=== PATIENT | female | born 1965 | race Caucasian/White ===

== ENCOUNTER 2020-06-26 19:11 | Emergency (ER) | payer BC, OTHER, SELFPAY ==
[2020-06-26] MEDS ORDERED: CYCLOBENZAPRINE HCL 10 MG TABLET ONE (19:25)
[2020-06-26] MEDS ORDERED: KETOROLAC TROMETHAMINE 30MG/ML ONE (19:25)
[2020-06-26 19:57] LABS: APPEARANCE,URINE Cloudy (CLEAR); BILIRUBIN,URINE Negative (NEGATIVE); COLOR,URINE Yellow (YELLOW); GLUCOSE, URINE (UA) Negative (NEGATIVE); KETONES,URINE Negative (NEGATIVE); LEUKOCYTE ESTERASE ,URINE Small (NEGATIVE); NITRATE,URINE Negative (NEGATIVE); OCCULT BLOOD,URINE Moderate (NEGATIVE); PROTEIN,URINE POS 2+ mg/dL (NEGATIVE); UROBILINOGEN,URINE 0.2 mg/dL (0.2-1.0)
[2020-06-26 19:57] LABS: BASOPHILS % (AUTO) 0.7 % (0.0-5.0); EOSINOPHILS % (AUTO) 1.8 % (0.0-8.0); HEMATOCRIT 41.5 % (36-48); MEAN CORPUSCULAR HEMOGLOBIN 30.8 pg (27.0-33.0); MEAN CORPUSCULAR VOLUME 90.6 fL (79-99); MONOCYTES % (AUTO) 6.7 % (3.0-13.0); NEUTROPHILS % (AUTO) 73.5 % (40.0-77.0); PLATELET COUNT (AUTO) 315 K/uL (130-400); RED BLOOD CELL COUNT(AUTO) 4.58 MIL/uL (4.00-5.50); RED CELL DISTRIBUTION WIDTH 13.3 % (11.0-15.5); WHITE BLOOD COUNT (AUTO) 12.5 K/uL (4.8-10.8)
[2020-06-26 20:18] LABS: SQUAMOUS EPITHELIAL CELL,UR Few /HPF (0-2)
[2020-06-26 20:19] LABS: BACTERIA,URINE Moderate /HPF (None Seen); MUCUS,URINE Few LPF (None Seen)
[2020-06-26 20:40] LABS: ALBUMIN 3.8 g/dL (3.5-5.0); BILIRUBIN,TOTAL 0.3 mg/dL (0.2-1.0); TOTAL PROTEIN, SERUM 7.4 g/dL (6.0-8.3)
== END 2020-06-26 20:58 | disposition home or self-care (01) ==
LOC: EDH 19:11
DX: S29.012A Strain of muscle and tendon of back wall of thorax, initial encounter (principal); S39.012A Strain of muscle, fascia and tendon of lower back, initial encounter; R73.09 Other abnormal glucose; R03.0 Elevated blood-pressure reading, without diagnosis of hypertension; E11.9 Type 2 diabetes mellitus without complications; V49.88XA Car occupant (driver) (passenger) injured in other specified transport accidents, initial encounter; Y93.89 Activity, other specified; Y92.488 Other paved roadways as the place of occurrence of the external cause; Y99.8 Other external cause status
CPT/HCPCS: 36415; 72128; 72131; 80053; 81001; 82550; 85025; 87088; 96374; 99285; J1885

== ENCOUNTER 2023-02-01 08:33 | Day surgery (SDC) | payer BC ==
[~2023-02-01] VITALS: Ht 157.5 cm; Wt 122.3 kg
[2023-02-01] VITALS (15 sets, daily range): BP systolic 111–171; BP diastolic 65–90; PULSE 84–93; RESP 15–20
[2023-02-01 09:06] LABS: BASOPHILS % (AUTO) 1.1 % (0.0-5.0); EOSINOPHILS % (AUTO) 4.5 % (0.0-8.0); HEMATOCRIT 41.2 % (36-48); IMMATURE GRANULOCYTE ABSOLUTE 0.04 K/uL (0-1); LYMPHOCYTES # (AUTO) 2.1 K/uL (1.0-4.8); LYMPHOCYTES % (AUTO) 23.4 % (21.0-51.0); MEAN CORPUSCULAR HEMOGLOBIN 30.4 pg (27.0-33.0); MEAN CORPUSCULAR VOLUME 92.2 fL (79-99); MONOCYTES # (AUTO) 0.6 K/uL (0.1-1.0); MONOCYTES % (AUTO) 6.4 % (3.0-13.0); NEUTROPHILS # (AUTO) 5.8 K/uL (1.8-7.7); NEUTROPHILS % (AUTO) 64.2 % (40.0-77.0); PLATELET COUNT (AUTO) 334 K/uL (130-400); RED BLOOD CELL COUNT(AUTO) 4.47 MIL/uL (4.00-5.50); RED CELL DISTRIBUTION WIDTH 13.4 % (11.0-15.5)
[2023-02-01] MEDS ORDERED: LACTATED RINGERS 1000ML 1,000 ML IV ONE (09:13)
[2023-02-01 09:16] LABS: CREATININE 1.1 mg/dL (0.5-1.5); POTASSIUM 5.5 mmol/L (3.5-5.1)
[2023-02-01] MEDS ORDERED: MIDAZOLAM HCL 1 MG/ML 2ML VIAL ONE (12:11)
[2023-02-01] MEDS ORDERED: FENTANYL CITRATE PF 50 MCG/1 ML 2ML VIAL ONE (12:11)
[2023-02-01] MEDS ORDERED: LIDOCAINE PF 100MG/5ML (2%) SYRINGE 5ML ONE (12:11)
[2023-02-01] MEDS ORDERED: PROPOFOL 10 MG/ML 20ML VIAL IV ONE (12:11)
[2023-02-01] MEDS ORDERED: ONDANSETRON 4MG INJ ONE ×2 (13:02→13:55)
[2023-02-01] MEDS ORDERED: DEXAMETHASONE SOD PHOSPHATE 4 MG/ML 1ML VIAL ONE (13:02)
[2023-02-01] MEDS ORDERED: INSU100I35 SQ (13:04)
[2023-02-01] MEDS ORDERED: VENL225T3 PO (13:04)
[2023-02-01] MEDS ORDERED: BRIM5DRO21 OP (13:04)
[2023-02-01] MEDS ORDERED: CARV12.511 PO (13:04)
[2023-02-01] MEDS ORDERED: SEMA0.258 SQ (13:04)
[2023-02-01] MEDS ORDERED: GABA600T10 PO (13:04)
[2023-02-01] MEDS ORDERED: LATA2.5D14 OP (13:04)
[2023-02-01] MEDS ORDERED: LEVO50CA4 PO (13:04)
[2023-02-01] MEDS ORDERED: LOSA100T59 PO (13:04)
[2023-02-01] MEDS ORDERED: METF-446 PO (13:04)
[2023-02-01] MEDS ORDERED: DORZ10DR10 OP (13:04)
[2023-02-01] MEDS ORDERED: TRAM50TA4 PO (13:04)
[2023-02-01] MEDS ORDERED: ATOR40TA69 PO (13:04)
[2023-02-01] MEDS ORDERED: NORE5TAB7 PO (13:04)
[2023-02-01] MEDS ORDERED: GLIM4TAB36 PO (13:04)
[2023-02-01] MEDS ORDERED: MEPERIDINE-PF 25 MG/ML SYG ONE (13:55)
== END 2023-02-01 15:30 | disposition home or self-care (01) ==
LOC: SUH 08:33
PROVIDERS: ATTEND Obstetrics & Gynecology
DX: N93.9 Abnormal uterine and vaginal bleeding, unspecified (principal); C54.1 Malignant neoplasm of endometrium; N95.0 Postmenopausal bleeding; R97.1 Elevated cancer antigen 125 [CA 125]; R93.89 Abnormal findings on diagnostic imaging of other specified body structures; I10 Essential (primary) hypertension; I25.10 Atherosclerotic heart disease of native coronary artery without angina pectoris; G47.30 Sleep apnea, unspecified; E66.01 Morbid (severe) obesity due to excess calories; K21.9 Gastro-esophageal reflux disease without esophagitis; E11.9 Type 2 diabetes mellitus without complications; E78.00 Pure hypercholesterolemia, unspecified; Z79.899 Other long term (current) drug therapy; Z79.01 Long term (current) use of anticoagulants; Z98.890 Other specified postprocedural states; Z68.42 Body mass index [BMI] 45.0-49.9, adult; Z82.49 Family history of ischemic heart disease and other diseases of the circulatory system; Z83.3 Family history of diabetes mellitus; Z80.3 Family history of malignant neoplasm of breast; Z80.41 Family history of malignant neoplasm of ovary; Z80.8 Family history of malignant neoplasm of other organs or systems
CPT/HCPCS: 58558; 88305; 80048; 84703; 85025; 82948 ×2; 36415; J1100; A4663; J7030; A4351; A4355; J7120; J3010; J2001; J2250; J2704; J2405 ×2; J2175; A4215; A4223; A4222; A4221; J3490